=== PATIENT | male | born 1970 | race Caucasian/White ===

== ENCOUNTER 2018-03-28 14:34 | Emergency (ER) | payer MEDICAID ==
[~2018-03-28] VITALS: Ht 167.6 cm; Wt 75.0 kg
[2018-03-28 15:00] VITALS: BP 129/52
== END 2018-03-28 22:00 | disposition home or self-care (01) ==
LOC: ER 21:57
DX: L30.9 Dermatitis, unspecified (principal)
CPT/HCPCS: 99282

== ENCOUNTER 2018-07-30 20:35 | Emergency (ER) | payer MEDICAID ==
[~2018-07-30] VITALS: Ht 165.1 cm; Wt 75.6 kg
[2018-07-31] MEDS ORDERED: KETOROLAC 60MG/2ML VIAL IM ONE
[2018-07-31 02:29] VITALS: BP 112/74
== END 2018-07-31 02:30 | disposition home or self-care (01) ==
LOC: ER 22:51
DX: M79.671 Pain in right foot (principal); M25.571 Pain in right ankle and joints of right foot; M25.551 Pain in right hip; E11.9 Type 2 diabetes mellitus without complications; Z98.890 Other specified postprocedural states; W11.XXXA Fall on and from ladder, initial encounter; Y93.89 Activity, other specified; Y92.018 Other place in single-family (private) house as the place of occurrence of the external cause
CPT/HCPCS: 29515; 72170; 73610; 73630; 96372; 99284; J1885